=== PATIENT | male | born 1985 | race Caucasian/White ===

== ENCOUNTER → 2021-04-17 13:39 | Outpatient (BNVA) | payer MEDICAID, SELFPAY | PROVIDERS: Family Provider Nurse Practitioner; Visit Provider Nurse Practitioner | DX: S62.633A Displaced fracture of distal phalanx of left middle finger, initial encounter for closed fracture (principal); X58.XXXA Exposure to other specified factors, initial encounter | CPT/HCPCS: 73130 ==

== ENCOUNTER → 2023-03-23 15:38 | Outpatient (BNVA) | payer MEDICAID, SELFPAY | PROVIDERS: Family Provider Nurse Practitioner; Visit Provider Podiatrist Foot & Ankle Surgery | DX: F84.0 Autistic disorder (principal); R26.89 Other abnormalities of gait and mobility; M20.32 Hallux varus (acquired), left foot | CPT/HCPCS: 99213 ==

== ENCOUNTER → 2024-03-23 12:55 | Outpatient (BNVA) | payer BC, SELFPAY | PROVIDERS: Family Provider Nurse Practitioner; Visit Provider Podiatrist Foot & Ankle Surgery | DX: M79.672 Pain in left foot; F84.0 Autistic disorder; M21.622 Bunionette of left foot | CPT/HCPCS: 73630 ==

== ENCOUNTER → 2024-08-23 14:39 | Outpatient (BNVA) | payer MEDICARE, SELFPAY | PROVIDERS: Family Provider Nurse Practitioner; Visit Provider Podiatrist Foot & Ankle Surgery | DX: F84.0 Autistic disorder (principal); M21.622 Bunionette of left foot | CPT/HCPCS: 99213 ==